=== PATIENT | female | born 1995 | race Hispanic/Latino ===

== ENCOUNTER 2023-05-27 16:45 | Emergency (ER) | payer OTHER ==
[~2023-05-27] VITALS: Ht 154.9 cm; Wt 65.8 kg
[~2023-05-27 16:45] MED LIST: IBUP-2077 PO; NORG1TAB15 PO
[2023-05-27 17:17] LABS: ADD UA MICROSCOPIC YES; APPEARANCE,URINE CLEAR (CLEAR); BILIRUBIN,URINE NEGATIVE (NEGATIVE); COLOR,URINE LIGHT-YELLOW (YELLOW); GLUCOSE, URINE (UA) NEGATIVE (NEGATIVE); HCG,QUALITATIVE URINE POSITIVE (NEGATIVE); KETONES,URINE 40 mg/dL (NEGATIVE); LEUKOCYTE ESTERASE ,URINE NEGATIVE Leu/uL (NEGATIVE); NITRATE,URINE NEGATIVE (NEGATIVE); OCCULT BLOOD,URINE NEGATIVE (NEGATIVE); PROTEIN,URINE NEGATIVE (NEGATIVE); UROBILINOGEN,URINE 0.2 mg/dL (0.2-1.0)
[2023-05-27 17:19] LABS: BACTERIA,URINE RARE /HPF (None Seen); MUCUS,URINE RARE LPF (None Seen); SQUAMOUS EPITHELIAL CELL,UR FEW /HPF (0-2)
[2023-05-27 18:07] LABS: HEMATOCRIT 34.4 % (36-48); MEAN CORPUSCULAR HEMOGLOBIN 30.5 pg (27.0-33.0); MEAN CORPUSCULAR HGB CONC 34.3 g/dL (32.0-36.0); MEAN CORPUSCULAR VOLUME 88.9 fL (79-99); RED BLOOD CELL COUNT(AUTO) 3.87 MIL/uL (4.00-5.50); RED CELL DISTRIBUTION WIDTH 13.5 % (11.0-15.5); WHITE BLOOD COUNT (AUTO) 13.9 K/uL (4.8-10.8)
[2023-05-27 18:28] LABS: ALBUMIN 2.9 g/dL (3.5-5.0); BILIRUBIN,TOTAL 0.2 mg/dL (0.2-1.0); CREATININE 0.5 mg/dL (0.5-1.5); TOTAL PROTEIN, SERUM 7.1 g/dL (6.0-8.3)
[2023-05-27 18:44] LABS: POTASSIUM 2.9 mmol/L (3.5-5.1)
[2023-05-28] MEDS ORDERED: CEFTRIAXONE 1G VIAL IM ONE
[2023-05-28] MEDS ORDERED: POTASSIUM BICARB/CIT AC 25 MEQ TABLET.EFF PO ONE (00:30)
[2023-05-28 04:02] VITALS: BP 128/82; PULSE 88; RESP 16; O2SAT 98
== END 2023-05-28 04:03 | disposition home or self-care (01) ==
LOC: EDH 16:45
DX: O26.891 Other specified pregnancy related conditions, first trimester (principal); R10.2 Pelvic and perineal pain; Z79.899 Other long term (current) drug therapy; Z98.890 Other specified postprocedural states; Z90.49 Acquired absence of other specified parts of digestive tract; Z88.8 Allergy status to other drugs, medicaments and biological substances
CPT/HCPCS: 99285; 80053; 85027; 81001; 81025; 36415 ×2; 84132; 76805; 96372; J0696

== ENCOUNTER 2023-07-03 19:55 | Emergency (ER) | payer OTHER ==
[~2023-07-03] VITALS: Ht 152.4 cm; Wt 67.1 kg
[2023-07-03 20:17] LABS: RAPID GROUP A STREP negative (NEGATIVE)
[2023-07-03 20:27] LABS: INFLUENZA TYPE A Negative For Type A (NEGATIVE)
[2023-07-03 20:28] LABS: SARS-CoV-2, RNA, NAAT POSITIVE SARS CoV-2 (NEGATIVE)
[2023-07-03 20:29] LABS: INFLUENZA TYPE B Positive For Type B (NEGATIVE)
[2023-07-03] MEDS ORDERED: OSEL75 PO (20:44)
[2023-07-03 20:55] VITALS: BP 127/65; PULSE 92; RESP 20; O2SAT 99
== END 2023-07-03 20:57 | disposition home or self-care (01) ==
LOC: EDH 19:55
DX: U07.1 COVID-19 (principal); J10.1 Influenza due to other identified influenza virus with other respiratory manifestations; Z79.899 Other long term (current) drug therapy; Z90.49 Acquired absence of other specified parts of digestive tract; Z98.890 Other specified postprocedural states; Z88.6 Allergy status to analgesic agent; Z88.8 Allergy status to other drugs, medicaments and biological substances
CPT/HCPCS: 87635; 87804; 87880

== ENCOUNTER 2023-07-04 13:08 | Observation (INO) | payer OTHER ==
[~2023-07-04] VITALS: Ht 152.4 cm; Wt 67.1 kg
[~2023-07-04 13:08] MED LIST changes: +OSEL75 PO
[2023-07-04 13:09] VITALS: BP 118/63; PULSE 122; RESP 20
[2023-07-04] MEDS ORDERED: 0.9%NACL 1000ML 1,000 ML IV ONE (13:30)
[2023-07-04] MEDS ORDERED: ONDANSETRON 4MG INJ IVP ONE ×2 (13:30→14:30)
[2023-07-04] MEDS ORDERED: LACTATED RINGERS 1000ML IV SCH (14:30)
== END 2023-07-04 14:40 | disposition home or self-care (01) ==
LOC: EDH 13:08 → LDH 13:09
PROVIDERS: ADMIT Obstetrics & Gynecology; ATTEND Obstetrics & Gynecology
DX: O21.9 Vomiting of pregnancy, unspecified (principal); O26.892 Other specified pregnancy related conditions, second trimester; M79.10 Myalgia, unspecified site; Z3A.20 20 weeks gestation of pregnancy
CPT/HCPCS: 99284; 96374; 96361; G0378; J2405; J7120; 96360

== ENCOUNTER 2023-09-14 20:04 | Observation (INO) | payer OTHER ==
[~2023-09-14] VITALS: Ht 154.9 cm; Wt 68.0 kg
[2023-09-14 20:17] VITALS: BP 124/83; PULSE 97; RESP 20
[2023-09-14 21:02] LABS: APPEARANCE,URINE CLEAR (CLEAR); BILIRUBIN,URINE NEGATIVE (NEGATIVE); COLOR,URINE LIGHT-YELLOW (YELLOW); GLUCOSE, URINE (UA) NEGATIVE (NEGATIVE); KETONES,URINE 60 mg/dL (NEGATIVE); LEUKOCYTE ESTERASE ,URINE NEGATIVE Leu/uL (NEGATIVE); NITRATE,URINE NEGATIVE (NEGATIVE); OCCULT BLOOD,URINE NEGATIVE (NEGATIVE); PROTEIN,URINE NEGATIVE (NEGATIVE); UROBILINOGEN,URINE 0.2 mg/dL (0.2-1.0)
[2023-09-14 21:04] LABS: ADD UA MICROSCOPIC NO
== END 2023-09-14 21:20 | disposition home or self-care (01) ==
LOC: EDH 20:04 → LDH 20:05
PROVIDERS: ADMIT Obstetrics & Gynecology; ATTEND Obstetrics & Gynecology
DX: O62.9 Abnormality of forces of labor, unspecified (principal); O26.893 Other specified pregnancy related conditions, third trimester; O24.419 Gestational diabetes mellitus in pregnancy, unspecified control; R07.9 Chest pain, unspecified; Z3A.31 31 weeks gestation of pregnancy
CPT/HCPCS: 81003; G0378

== ENCOUNTER 2023-10-06 08:24 | Observation (INO) | payer OTHER, MEDICAID ==
[~2023-10-06] VITALS: Ht 154.9 cm; Wt 67.6 kg
[2023-10-06 08:27] VITALS: BP 120/84; PULSE 88; RESP 16
[2023-10-06 09:15] LABS: APPEARANCE,URINE CLEAR (CLEAR); BILIRUBIN,URINE NEGATIVE (NEGATIVE); COLOR,URINE LIGHT-YELLOW (YELLOW); GLUCOSE, URINE (UA) NEGATIVE (NEGATIVE); KETONES,URINE 10 mg/dL (NEGATIVE); LEUKOCYTE ESTERASE ,URINE 25 Leu/uL (NEGATIVE); NITRATE,URINE NEGATIVE (NEGATIVE); OCCULT BLOOD,URINE NEGATIVE (NEGATIVE); PROTEIN,URINE NEGATIVE (NEGATIVE); UROBILINOGEN,URINE 0.2 mg/dL (0.2-1.0)
[2023-10-06 09:18] LABS: ADD UA MICROSCOPIC YES
[2023-10-06 09:24] LABS: BACTERIA,URINE RARE /HPF (None Seen); RBC,URINE 0-1 /HPF (0-1); SQUAMOUS EPITHELIAL CELL,UR FEW /HPF (0-2)
== END 2023-10-06 10:50 | disposition home or self-care (01) ==
LOC: EDH 08:24 → LDH 08:25
PROVIDERS: ADMIT Obstetrics & Gynecology; ATTEND Obstetrics & Gynecology
DX: O26.893 Other specified pregnancy related conditions, third trimester (principal); O24.419 Gestational diabetes mellitus in pregnancy, unspecified control; N89.8 Other specified noninflammatory disorders of vagina; R10.2 Pelvic and perineal pain; M54.9 Dorsalgia, unspecified; Z3A.34 34 weeks gestation of pregnancy; Z88.6 Allergy status to analgesic agent; Z91.040 Latex allergy status
CPT/HCPCS: 59025; 81001; G0378 ×2; G0379

== ENCOUNTER 2023-10-07 16:13 | Observation (INO) | payer OTHER, MEDICAID ==
[~2023-10-07] VITALS: Ht 154.9 cm; Wt 66.7 kg
[2023-10-07 16:35] VITALS: BP 118/77; PULSE 94; RESP 16
[2023-10-07 17:12] LABS: APPEARANCE,URINE CLEAR (CLEAR); BILIRUBIN,URINE NEGATIVE (NEGATIVE); COLOR,URINE LIGHT-YELLOW (YELLOW); GLUCOSE, URINE (UA) NEGATIVE (NEGATIVE); KETONES,URINE 40 mg/dL (NEGATIVE); LEUKOCYTE ESTERASE ,URINE NEGATIVE Leu/uL (NEGATIVE); NITRATE,URINE NEGATIVE (NEGATIVE); OCCULT BLOOD,URINE NEGATIVE (NEGATIVE); PH,URINE 6.5 (5.0-8.0); PROTEIN,URINE NEGATIVE (NEGATIVE); UROBILINOGEN,URINE 0.2 mg/dL (0.2-1.0)
[2023-10-07 17:13] LABS: ADD UA MICROSCOPIC YES
[2023-10-07 17:16] LABS: BACTERIA,URINE RARE /HPF (None Seen); HYALINE CASTS, URINE 0-1 /LPF (0-1 /LPF); MUCUS,URINE RARE LPF (None Seen); SQUAMOUS EPITHELIAL CELL,UR FEW /HPF (0-2)
[2023-10-07] MEDS: LACTATED RINGERS 1000ML IV SCH (18:47)
[2023-10-07] MEDS: ACETAMINOPHEN 500 MG TABLET PO ONE (20:01)
[2023-10-07] MEDS ORDERED: LACTATED RINGERS 1000ML IV SCH ×2 (21:00)
== END 2023-10-07 21:00 | disposition home or self-care (01) ==
LOC: EDH 16:13 → LDH 16:14
PROVIDERS: ADMIT Obstetrics & Gynecology; ATTEND Obstetrics & Gynecology
DX: O26.893 Other specified pregnancy related conditions, third trimester (principal); R10.9 Unspecified abdominal pain; O99.891 Other specified diseases and conditions complicating pregnancy; M54.9 Dorsalgia, unspecified; O24.419 Gestational diabetes mellitus in pregnancy, unspecified control; Z3A.34 34 weeks gestation of pregnancy; Z91.040 Latex allergy status
CPT/HCPCS: 96360; 96361; 81001; 76805; 82120; G0378 ×4; J7120